=== PATIENT | male | born 1975 | race Caucasian/White ===

== ENCOUNTER 2019-03-10 16:56 | Emergency (ER) | payer SELFPAY ==
[2019-03-10] MEDS ORDERED: NORCO 5/325 PO ONE (17:55)
--- NOTE | 2019-03-10 18:13 | Emergency Department Report ---
ED Laceration HPI - HPI Chief Complaint: Wound/Laceration Stated Complaint: LACERATION ON (R) LEG Time Seen by Provider: 03/10/19 17:26 Occurred When: Today Location: Lower Extremity Tetanus Status: Not up to Date Laceration Symptoms: Yes Pain, No Foreign Body Sensation, No Numbness, No Weakness Other History: This is a 44-year-old male who presents to ED complaining of laceration to right ankle that happened earlier today. Patient states he was working with an electric saw when he accidentally cut him on his right ankle. Patient states he went home after the incident. Patient states bleeding was controlled after he put some black coffee on the laceration. Patient states his tetanus is not up to date. ED Review of Systems ROS: Stated complaint: LACERATION ON (R) LEG Other details as noted in HPI Comment: All other systems reviewed and negative ED Past Medical Hx - Past Medical History Previous Medical History?: No - Surgical History Past Surgical History?: No - Social History Smoking Status: Never Smoker Substance Use Type: None - Medications Home Medications: Home Medications Medication Instructions Recorded Confirmed Last Taken Type Cyclobenzaprine [Flexeril] 10 mg PO TID PRN #20 tablet 03/08/16 Unknown Rx Acetaminophen/Codeine [Tylenol 1 tab PO Q6H #8 tab 03/10/19 Unknown Rx /Codeine # 3 tab] Ibuprofen [Motrin 800 MG tab] 800 mg PO Q8HR PRN #30 tablet 03/10/19 Unknown Rx cephALEXin [Keflex] 500 mg PO Q12HR #14 cap 03/10/19 Unknown Rx Laceration Physical Exam - Exam General: Vital signs noted. No distress. Alert and acting appropriately. Wound Length (cm): 3 Laceration Location: Lower Extremity (the right medial ankle) Laceration Exam: Yes Normal Distal CMS, No Foreign Body, No Exposed Tendon, Vessel, or Nerve, No Tendon Injury ED Course Vital Signs 03/10/19 03/10/19 17:01 17:11 Temperature 97.8 F Pulse Rate 69 Respiratory 18 17 Rate Blood Pressure 90/67 O2 Sat by Pulse 98 Oximetry - Laceration /Wound Repair Right Lower Medial Ankle Wound Location: lower extremity Wound Length (cm): 4 Wound's Depth, Shape: superficial, into muscle, linear Irrigated w/ Saline (ccs): 300 Betadine Prep?: Yes Anesthesia: 1% Lidocaine Volume Anesthetic (ccs): 6 Wound Debrided: minimal Wound Repaired With: sutures Suture Size/Type: 4:0, proline Number of Sutures: 8 Layer Closure?: Yes Deep Layer Suture Size/Type: 5:0, chromic Sterile Dressing Applied?: Yes ED Medical Decision Making - Medical Decision Making 44-year-old male presents with right ankle laceration. She received pain medication in the ED, tetanus booster. The 3-4 cm laceration wound was prepped and draped in sterile fashion. Anesthesia was achieved with 6mL of 1% lidocaine. The wound was irrigated with 300cc NS and explored. There were no foreign bodies The wound was reapproximated in 2 layer There was excellent reapproximation of the wound edges. The patient tolerated the procedure without complication Discussed patient to return in 10-14 days for suture removal. Discussed follow-up with primary care physician Vital signs are normal patient is in no acute distress. Critical care attestation.: If time is entered above; I have spent that time in minutes in the direct care of this critically ill patient, excluding procedure time. ED Disposition Clinical Impression: Laceration of ankle Disposition: [id number] TO HOME OR SELFCARE Is pt being admited?: No Does the pt Need Aspirin: No Condition: Stable Instructions: Suture Care (ED), Laceration (ED), Absorbable Suture Care (ED) Additional Instructions: Make sure to follow up with the primary care physician as discussed. Take all your medications as you've been prescribed. If you have any worsening symptoms or develop new symptoms please return to ED immediately. Prescriptions: cephALEXin [Keflex] 500 mg PO Q12HR #14 cap Ibuprofen [Motrin 800 MG tab] 800 mg PO Q8HR PRN #30 tablet PRN Reason: Pain Acetaminophen/Codeine [Tylenol /Codeine # 3 tab] 1 tab PO Q6H #8 tab Referrals: BERNICE AVENDAÑO MD [Primary Care Provider] - 3-5 Days [facility] [Outside] - 3-5 Days [facility] [Outside] - 3-5 Days Forms: Accompanied Note, Work/School Release Form(ED) Time of Disposition: 20:28 Print Language: PAKISTANI
[2019-03-10] MEDS ORDERED: XYLOCAINE 1% 20 mL INFILTRATI NR (18:15)
[2019-03-10] MEDS ORDERED: NACL 0.9% 500 ML IR ONE (18:15)
[2019-03-10] MEDS ORDERED: NACL 0.9% 500 ML IRRIGATION SCH (19:00)
[2019-03-10] MEDS ORDERED: BOOSTRIX IM ONE (19:45)
[2019-03-10 20:55] VITALS: BP 110/74
== END 2019-03-10 20:49 | disposition home or self-care (01) ==
LOC: ED 16:56
DX: S91.011A Laceration without foreign body, right ankle, initial encounter (principal); Z79.899 Other long term (current) drug therapy; W29.8XXA Contact with other powered hand tools and household machinery, initial encounter; Y93.89 Activity, other specified; Y92.019 Unspecified place in single-family (private) house as the place of occurrence of the external cause; Y99.8 Other external cause status
CPT/HCPCS: 90471; 90715; 99282